=== PATIENT | male | born 1990 | race Caucasian/White ===

== ENCOUNTER 2021-03-03 13:07 | Outpatient (REF) | payer BC, SELFPAY ==
[2021-03-03 15:35] LABS: Hemoglobin A1C 5.4 % (<5.7)
[2021-03-03 15:41] LABS: ALT 28 U/L (16-63); AST 15 U/L (15-37); Albumin 4.1 g/dL (3.4-5.0); Alkaline Phosphatase 75 U/L (46-116); Anion Gap 6.9 mmol/L (3-11); BUN 15 mg/dL (7-18); Bilirubin, Total 0.6 mg/dL (0.2-1.0); CO2 30.1 mmol/L (21.0-32.0); CREATININE 0.8 mg/dL (0.70-1.30); Calcium 9.6 mg/dL (8.5-10.1); Calculated LDL 81 mg/dL (<100); Chloride 106 mmol/L (98-107); Cholesterol 147 mg/dL (<200); Glucose 95 mg/dL (74-106); HDL Cholesterol 51 mg/dL (40-60); Potassium 4.7 mmol/L (3.5-5.1); Sodium 143 mmol/L (136-145); Total Protein 7.2 g/dL (6.4-8.2); Triglyceride 77 mg/dL (<150)
== END 2021-03-03 13:08 | disposition home or self-care (01) ==
LOC: LBN 13:07
PROVIDERS: PCP Nurse Practitioner Family; Visit Provider Nurse Practitioner Family
DX: Z00.00 Encounter for general adult medical examination without abnormal findings (principal); Z13.220 Encounter for screening for lipoid disorders; Z13.1 Encounter for screening for diabetes mellitus
CPT/HCPCS: 80053; 80061; 83036

== ENCOUNTER 2025-06-11 00:51 | Outpatient (CLI) | payer BC, SELFPAY ==
[2025-06-11 16:25] LABS: Abs Immature Grans 0.04 10^3/uL (0.0-0.06); HCT 45.8 % (40.0-50.0); HGB 16.0 g/dL (13.5-17.5); Immature Grans % 0.5 %; MCH 31.8 pg (27.0-33.0); MCHC 34.9 % (32.0-36.0); MCV 91 fL (80-95); MPV 10.0 fL (8.0-11.0); Platelet Count 268 10^3/uL (130-400); RBC 5.03 10^6/uL (4.36-5.78); RDW 12.0 % (11.8-14.1); RDW-SD 40.0 fL; WBC 8.45 10^3/uL (4.4-10.8)
[2025-06-11 16:38] LABS: Iron 94 ug/dL (65-175); Total Iron Binding Capacity 318 ug/dL (250-450)
[2025-06-11 17:06] LABS: ALT 33 U/L (16-63); AST 15 U/L (15-37); Albumin 4.0 g/dL (3.4-5.0); Alkaline Phosphatase 75 U/L (46-116); Anion Gap 7.5 mmol/L (3-11); BUN 16 mg/dL (7-18); Bilirubin, Total 0.3 mg/dL (0.2-1.0); CO2 29.5 mmol/L (21.0-32.0); Calcium 8.9 mg/dL (8.5-10.1); Calculated LDL 108 mg/dL (<100); Chloride 103 mmol/L (98-107); Cholesterol 179 mg/dL (<200); Estimated GFR 113.51 (mL/min/1.73m2); Ferritin 534 ng/mL (26-388); Glucose 111 mg/dL (74-106); HDL Cholesterol 39 mg/dL (>or=40); Potassium 4.0 mmol/L (3.5-5.1); Sodium 140 mmol/L (136-145); TSH (W/Ref FT4) 0.84 uIU/mL (0.36-3.74); Total Protein 7.8 g/dL (6.4-8.2); Triglyceride 164 mg/dL (<150); Vitamin B12 395 pg/mL (193-986)
[2025-06-11 17:16] LABS: Hemoglobin A1C 5.4 % (<5.7)
[2025-06-15 10:01] LABS: Transferrin 241 mg/dL (201-352)
== END 2025-06-11 00:52 | disposition home or self-care (01) ==
LOC: LOS 00:51
PROVIDERS: PCP Nurse Practitioner Family; Visit Provider Nurse Practitioner Family
DX: Z13.220 Encounter for screening for lipoid disorders (principal); R23.1 Pallor; R23.2 Flushing; Z13.1 Encounter for screening for diabetes mellitus; E03.9 Hypothyroidism, unspecified
CPT/HCPCS: 36415; 80053; 80061; 82607; 82728; 83036; 83540; 83550; 84443; 84466; 85025

== ENCOUNTER 2025-07-17 00:52 | Outpatient (CLI) | payer BC, SELFPAY ==
[2025-07-17 16:16] LABS: Ferritin 437 ng/mL (26-388)
== END 2025-07-17 00:53 | disposition home or self-care (01) ==
LOC: LOS 00:52
PROVIDERS: PCP Nurse Practitioner Family; Visit Provider Nurse Practitioner Family
DX: R79.89 Other specified abnormal findings of blood chemistry (principal)
CPT/HCPCS: 36415; 82728